=== PATIENT | male | born 1990 | race African-American/Black ===

== ENCOUNTER 2018-05-28 13:42 | Emergency (ER) | payer SELFPAY ==
[~2018-05-28] VITALS: Ht 177.8 cm; Wt 86.2 kg
[2018-05-28 13:47] VITALS: BP 132/73
[2018-05-28] MEDS ORDERED: AMOX500T PO (14:12)
--- NOTE | 2018-05-28 14:14 | PHYS DOC ---
Past Medical History Past Medical History: No Pertinent History Past Surgical History: No Surgical History Alcohol Use: Occasionally Drug Use: Marijuana Adult General Chief Complaint Chief Complaint: SORE THROAT HPI HPI Patient is a 28 year old male who presents with left ear pain and throat pain for 4 days. Patient states he did have a fever for the first 2 days but is since gone away. Patient states it is a sharp pain and he rates his pain currently at a 6 out of 10. Review of Systems Review of Systems Constitutional: Denies fever or chills [] Eyes: Denies change in visual acuity, redness, or eye pain. Left ear pain. [] HENT: Denies nasal congestion. sore throat [] Respiratory: Denies cough or shortness of breath [] Cardiovascular: No additional information not addressed in HPI [] GI: Denies abdominal pain, nausea, vomiting, bloody stools or diarrhea [] : Denies dysuria or hematuria [] Musculoskeletal: Denies back pain or joint pain [] Integument: Denies rash or skin lesions [] Neurologic: Denies headache, focal weakness or sensory changes [] All other systems were reviewed and found to be within normal limits, except as documented in this note. Allergies Allergies Allergies Coded Allergies Type Severity Reaction Last Updated Verified No Known Drug Allergies 05/28/18 No Physical Exam Physical Exam Constitutional: Well developed, well nourished, no acute distress, non-toxic appearance. [] HENT: Normocephalic, atraumatic, bilateral external ears normal, oropharynx moist, no oral exudates, nose normal. Throat reddened. Left tympanic is red. [] Eyes: PERRLA, EOMI, conjunctiva normal, no discharge. [] Neck: Normal range of motion, no tenderness, supple, no stridor. [] Cardiovascular:Heart rate regular rhythm, no murmur [] Lungs & Thorax: Bilateral breath sounds clear to auscultation [] Abdomen: Bowel sounds normal, soft, no tenderness, no masses, no pulsatile masses. [] Skin: Warm, dry, no erythema, no rash. [] Back: No tenderness, no CVA tenderness. [] Extremities: No tenderness, no cyanosis, no clubbing, ROM intact, no edema. [] Neurologic: Alert and oriented X 3, normal motor function, normal sensory function, no focal deficits noted. [] Psychologic: Affect normal, judgement normal, mood normal. [] Current Patient Data Vital Signs Vital Signs Date Time Temp Pulse Resp B/P (MAP) Pulse Ox O2 Delivery O2 Flow Rate FiO2 05/28/18 13:47 98.9 69 16 132/73 (92) 98 Room Air 98.9 EKG EKG [] Radiology/Procedures Radiology/Procedures [] Course & Med Decision Making Course & Med Decision Making Patient is a 28 year old male who presents with left ear pain and throat pain for 4 days. Patient states he did have a fever for the first 2 days but is since gone away. Patient states it is a sharp pain and he rates his pain currently at a 6 out of 10. Patient denies dizziness, chest pain, shortness of air, nasal congestion, abdominal pain, nausea, vomiting, diarrhea. Vital signs are within normal limits. Afebrile. Lungs are clear to auscultation all lobes. Heart rate regular without murmur. There is reddened but there is no swelling or exudates. Left tympanic is reddened. Right tympanic is pearly white. There are no lymph nodes felt with palpation. Abdomen is soft and non-tender. Rapid strep negative. Patient will be put on amoxicillin for otitis media. Patient is take Tylenol or ibuprofen for his pain or fever. Patient needs follow primary care provider next week especially if not getting better. Dragon Disclaimer Dragon Disclaimer This electronic medical record was generated, in whole or in part, using a voice recognition dictation system. Departure Departure Impression: Primary Impression: Otitis media Disposition: 01 HOME, SELF-CARE Condition: STABLE Patient Instructions: Otitis Media, Adult Additional Instructions: Patient is take Tylenol or ibuprofen for his pain or fever. Patient needs follow primary care provider next week especially if not getting better. Scripts Amoxicillin (AMOXICILLIN) 500 Mg Tablet 1 TAB PO BID for 10 Days, #20 TAB Prov: GRETA SOTO APRN 05/28/18 Problem Qualifiers Primary Impression: Otitis media Otitis media type: unspecified Laterality: left Qualified Codes: H66.92 - Otitis media, unspecified, left ear GRETA SOTO APRN May 28, 2018 14:14
== END 2018-05-28 15:36 | disposition home or self-care (01) ==
LOC: ER 13:42
DX: H66.92 Otitis media, unspecified, left ear (principal); R07.0 Pain in throat
CPT/HCPCS: 87070; 87880; 99283